=== PATIENT | female | born 1980 | race African-American/Black ===

== ENCOUNTER 2017-02-24 12:31 | Emergency (ER) | payer SELFPAY ==
[2017-02-24 12:41] VITALS: TEMP 98
[2017-02-24] MEDS ORDERED: SODIUM CHLORIDE 0.9% 1000ML 1,000 ML IVS ONE (12:49)
[2017-02-24] MEDS ORDERED: PROCHLORPERAZINE INJ 10 MG/2 ML VIAL IV ONE (12:50)
[2017-02-24] MEDS ORDERED: KETOROLAC TROMETHAMINE INJ 30 MG/ML VIAL IV ONE (12:50)
--- NOTE | 2017-02-24 13:40 | RAD ---
EXAM DESCRIPTION: Abdomen Series CLINICAL HISTORY: 36 years, Female, left flank and abd pain 12 hours COMPARISON: None. FINDINGS: Slightly shallow inspiration shows clear lungs and normal cardiac silhouette. No free air in the right hemidiaphragm. Supine and erect films show nonspecific small bowel gas. Moderate stool in the proximal colon and rectal region. IMPRESSION: No findings of obstruction or free air. Moderate stool in colon, probably upper range of normal Electronically signed by: Maxi Lee MD 02/24/2017 1:40 PM CDT
[2017-02-24] MEDS ORDERED: PANTOPRAZOLE SODIUM IV 40 MG VIAL IV ONE (13:50)
[2017-02-24] MEDS ORDERED: ALUMINUM & MAGNESIUM HYDROXIDE 30 ML UD PO ONE (13:50)
[2017-02-24] MEDS ORDERED: SODIUM CHLORIDE 0.9% 10 ML VIAL ONE (13:55)
[2017-02-24] MEDS ORDERED: HYDROmorphone HCL INJ 2 MG/ML VIAL IV SCH (14:00)
[2017-02-24 16:33] VITALS: BP 108/64; O2SAT 100
--- NOTE | 2017-02-24 16:46 | ED.PDOC ---
History of Present Illness - General Chief Complaint: Abdominal Pain Time Seen by Provider: 02/24/17 12:40 Source: patient Exam Limitations: no limitations - History of Present Illness Initial Comments: the patient is a 36-year-old Afro-[place] female presenting to the emergency room secondary to 6 hours of left-sided abdominal and back discomfort with some associated nausea and vomiting. No blood or bile. No diarrhea. No definite fevers. No syncope. No chest pain. She has been passing gas. Timing/Duration: 4-6 hours Severity: moderate Improving Factors: nothing Worsening Factors: nothing Associated Symptoms: loss of appetite, malaise, nausea/vomiting, weakness Allergies/Adverse Reactions: Allergies Codeine Allergy (Verified 02/24/17 12:43) Eggs or Egg-derived Products Allergy (Verified 02/24/17 12:43) Shellfish Allergy Allergy (Verified 02/24/17 12:43) Home Medications: Ambulatory Orders Ondansetron [Zofran Odt] 4 mg PO Q4H PRN #10 tab 02/24/17 Promethazine HCl 25 mg PO Q6H PRN #10 tab 02/24/17 Review of Systems - Review of Systems Constitutional: States: malaise EENTM: States: no symptoms reported Respiratory: States: no symptoms reported Cardiology: States: no symptoms reported Gastrointestinal/Abdominal: States: see HPI Genitourinary: States: other - the patient has had a mild feeling of urinary retention. No burning with urination. Mild frequency. Musculoskeletal: States: back pain - on the left lower back Skin: States: no symptoms reported Neurological: States: no symptoms reported Endocrine: States: no symptoms reported All other Systems: No Change from Baseline Past Medical History (General) - Patient Medical History Hx Seizures: Yes Hx Stroke: No Hx Congestive Heart Failure: No Hx Diabetes: No - Vaccination History Hx Influenza Vaccination: No Hx Pneumococcal Vaccination: No - Social History Hx Tobacco Use: No - Female History Patient is a Female of Child Bearing Age (10 -59 yrs old): Yes Patient : No Family Medical History - Family History Mother Living Status: Still Living Physical Exam - Physical Exam General Appearance: Alert, Anxious, Other - vomiting Eye Exam: bilateral normal Ears, Nose, Throat: hearing grossly normal, normal ENT inspection, normal pharynx Neck: non-tender, full range of motion, supple Respiratory: chest non-tender, lungs clear, normal breath sounds, no respiratory distress, no accessory muscle use Cardiovascular/Chest: normal peripheral pulses, regular rate, rhythm, no edema Peripheral Pulses: radial,right: 2+, radial,left: 2+, dorsalis pedis,right: 2+, dorsalis pedis,left: 2+ Gastrointestinal/Abdominal: soft, other - the patient has left upper and lateral abdomen pain as well as left flank pain. No suprapubic pain. No right- sided pain. No chest pain. Rectal Exam: deferred Back Exam: normal inspection, CVA tenderness (L) Extremity: normal range of motion, non-tender, normal inspection, no pedal edema , normal capillary refill Neurologic: counsellors II-XII nml as tested, alert, normal mood/affect, oriented x 3 Skin Exam: normal color Comments: Vital Signs - 24 hr 02/24/17 02/24/17 02/24/17 12:39 13:31 14:40 Temperature 98.0 F 98.0 F Pulse Rate [ 64 56 L 62 Left Radial] Respiratory 20 20 20 Rate Blood Pressure 121/54 118/52 110/54 [Right Arm] O2 Sat by Pulse 97 96 95 Oximetry 02/24/17 16:00 Temperature Pulse Rate [ 100 H Left Radial] Respiratory 20 Rate Blood Pressure 108/64 [Right Arm] O2 Sat by Pulse 100 Oximetry Progress - Progress Progress: 02/24/17 16:48 the patient is a 36-year-old -[place] female presenting to the emergency room secondary to left-sided abdominal and flank pain giving her nausea and vomiting for the last 4-6 hours. The patient responded well to antiemetics and IV fluids. she did receive a dose of Toradol as well. Vomiting is stopped. pain is reducing. Lab work is reassuring. the patient will be written for Zofran to use as an outpatient. 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 She can also take one dose of milk of magnesia when she goes home to help with mild constipation seen on x-ray. Maalox can otherwise be used for gastritis and heartburn symptoms. She needs to keep herself well hydrated. eat small bland meals. She can follow-up with her primary care doctor early next week. She is to return here to the emergency room if the pain comes back or gets worse for further evaluation including CT scan. This was discussed with the patient and the patient has deferred this modality at this time secondary to clinical improvement. - Results/Orders Results/Orders: Laboratory Tests 02/24/17 02/24/17 02/24/17 13:00 13:00 13:00 WBC 9.9 RBC 4.92 Hgb 12.8 Hct 39.7 MCV 80.6 L MCH 26.1 L MCHC 32.4 L RDW 15.4 H Plt Count 254 MPV 8.2 Absolute Neuts (auto) 8.80 H Absolute Lymphs (auto) 0.70 L Absolute Monos (auto) 0.30 Absolute Eos (auto) 0.00 Absolute Basos (auto) 0.10 Neutrophils % 88.9 H Lymphocytes % 6.9 L Monocytes % 3.5 Eosinophils % 0.0 L Basophils % 0.7 PT INR PTT (SP) 27.8 D-Dimer, Quantitative < 230 Sodium 135 Potassium 4.3 Chloride 103 Carbon Dioxide 25 Anion Gap 11.3 L BUN 16 Creatinine 0.94 BUN/Creatinine Ratio 17.0 Random Glucose 104 Serum Osmolality 271.6 L Lactic Acid Calcium 9.3 Total Bilirubin 1.0 AST 22 ALT 14 Alkaline Phosphatase 58 Creatine Kinase 85 CK-MB (CK-2) 1.4 CK-MB (CK-2) % Not Reportable Troponin I < 0.02 Serum Total Protein 8.6 H Albumin 4.3 Globulin 4.3 H Albumin/Globulin Ratio 1.0 L Amylase 199 H Lipase 35 Serum HCG, Qual Urine Color Urine Appearance Urine pH Ur Specific [place] Urine Protein Urine Glucose (UA) Urine Ketones Urine Blood Urine Nitrite Urine Bilirubin Urine Urobilinogen Ur Leukocyte Esterase Urine RBC Urine WBC Ur Epithelial Cells Urine Bacteria 02/24/17 02/24/17 02/24/17 13:00 13:00 13:00 WBC RBC Hgb Hct MCV MCH MCHC RDW Plt Count MPV Absolute Neuts (auto) Absolute Lymphs (auto) Absolute Monos (auto) Absolute Eos (auto) Absolute Basos (auto) Neutrophils % Lymphocytes % Monocytes % Eosinophils % Basophils % PT 11.4 INR 1.010 PTT (SP) D-Dimer, Quantitative Sodium Potassium Chloride Carbon Dioxide Anion Gap BUN Creatinine BUN/Creatinine Ratio Random Glucose Serum Osmolality Lactic Acid 1.9 Calcium Total Bilirubin AST ALT Alkaline Phosphatase Creatine Kinase CK-MB (CK-2) CK-MB (CK-2) % Troponin I Serum Total Protein Albumin Globulin Albumin/Globulin Ratio Amylase Lipase Serum HCG, Qual Negative Urine Color Urine Appearance Urine pH Ur Specific [place] Urine Protein Urine Glucose (UA) Urine Ketones Urine Blood Urine Nitrite Urine Bilirubin Urine Urobilinogen Ur Leukocyte Esterase Urine RBC Urine WBC Ur Epithelial Cells Urine Bacteria 02/24/17 13:00 WBC RBC Hgb Hct MCV MCH MCHC RDW Plt Count MPV Absolute Neuts (auto) Absolute Lymphs (auto) Absolute Monos (auto) Absolute Eos (auto) Absolute Basos (auto) Neutrophils % Lymphocytes % Monocytes % Eosinophils % Basophils % PT INR PTT (SP) D-Dimer, Quantitative Sodium Potassium Chloride Carbon Dioxide Anion Gap BUN Creatinine BUN/Creatinine Ratio Random Glucose Serum Osmolality Lactic Acid Calcium Total Bilirubin AST ALT Alkaline Phosphatase Creatine Kinase CK-MB (CK-2) CK-MB (CK-2) % Troponin I Serum Total Protein Albumin Globulin Albumin/Globulin Ratio Amylase Lipase Serum HCG, Qual Urine Color Yellow Urine Appearance Clear Urine pH 8.5 H Ur Specific [place] 1.020 Urine Protein Negative Urine Glucose (UA) Negative Urine Ketones Negative Urine Blood Negative Urine Nitrite Negative Urine Bilirubin Negative Urine Urobilinogen 0.2 Ur Leukocyte Esterase Trace H Urine RBC 0 Urine WBC 3-5 H Ur Epithelial Cells 10-20 Urine Bacteria 0 Departure - Departure Clinical Impression: Gastroenteritis Disposition: Discharge to Home or Self Care Condition: Fair Departure Forms: ED Discharge - Pt. Copy, Patient Portal Self Enrollment Instructions: DI for Viral Gastroenteritis -- Adult Diet: bland diet Activity: increase activity as tolerated Referrals: Samuel Chaparro MD [Primary Care Provider] - 1-5 Days Prescriptions: Ondansetron [Zofran Odt] 4 mg PO Q4H PRN #10 tab PRN Reason: Vomiting Promethazine HCl 25 mg PO Q6H PRN #10 tab PRN Reason: Vomiting Home Medications: Ambulatory Orders Ondansetron [Zofran Odt] 4 mg PO Q4H PRN #10 tab 02/24/17 Promethazine HCl 25 mg PO Q6H PRN #10 tab 02/24/17 Additional Instructions: the patient is a 36-year-old -[place] female presenting to the emergency room secondary to left-sided abdominal and flank pain giving her nausea and vomiting for the last 4-6 hours. The patient responded well to antiemetics and IV fluids. she did receive a dose of Toradol as well. Vomiting is stopped. pain is reducing. Lab work is reassuring. the patient will be written for Zofran to use as an outpatient. 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 She can also take one dose of milk of magnesia when she goes home to help with mild constipation seen on x-ray. Maalox can otherwise be used for gastritis and heartburn symptoms. She needs to keep herself well hydrated. eat small bland meals. She can follow-up with her primary care doctor early next week. She is to return here to the emergency room if the pain comes back or gets worse for further evaluation including CT scan.
== END 2017-02-24 16:53 | disposition home or self-care (01) ==
LOC: ER 12:31
DX: K52.9 Noninfective gastroenteritis and colitis, unspecified (principal); Z88.6 Allergy status to analgesic agent; Z91.012 Allergy to eggs; Z91.013 Allergy to seafood
CPT/HCPCS: 36415; 74020; 80053; 81001; 82150; 82550; 82553; 83605; 83690; 84484; 84703; 85025; 85379; 85610; 85730; 87040; J0780; J1170; J1885; J7030